=== PATIENT | male | born 1975 | race Caucasian/White ===

== ENCOUNTER 2018-07-13 05:02 | Emergency (ER) | payer OTHER ==
[2018-07-13] MEDS: LACTATED RINGER'S 500 ML IV (06:42)
[2018-07-13 07:20] LABS: ADD UMIC YES; UR ASCORBIC ACID NEGATIVE (NEGATIVE); UR BILIRUBIN (Dip) NEGATIVE (NEGATIVE); UR BLOOD (Dip) 1+ mg/dL (NEGATIVE); UR CLARITY SLIGHTLY CLOUDY (CLEAR); UR COLOR YELLOW (YELLOW); UR GLUCOSE (Dip) NEGATIVE (NEGATIVE); UR KETONES (Dip) 1+ mg/dL (NEGATIVE); UR LEUKOCYTE ESTERASE (Dip) 2+ Leu/ul (NEGATIVE); UR MUCUS FEW /HPF (NONE SEEN); UR NITRITE (Dip) NEGATIVE (NEGATIVE); UR RBC 4 /HPF (0-5); UR SPECIFIC GRAVITY (Dip) 1.018 (1.003-1.030); UR TOTAL PROTEIN (Dip) NEGATIVE (NEGATIVE); UR UROBILINOGEN (Dip) 2+ mg/dL (NEGATIVE); UR WBC 60 /HPF (0-5)
[2018-07-13] MEDS: CEFTRIAXONE 1 GM/50 ML (PMX) 50 ML IVPB (07:52)
== END 2018-07-13 09:00 | disposition home or self-care (01) ==
LOC: FTE 05:02
DX: R30.0 Dysuria (principal); E86.0 Dehydration
CPT/HCPCS: 81001; 96361; 96365; 99284-25

== ENCOUNTER 2018-08-10 13:05 | Emergency (ER) | payer OTHER | END 2018-08-10 13:31 | disposition left against medical advice (07) | LOC: E/R 13:05 | DX: Z00.00 Encounter for general adult medical examination without abnormal findings (principal) | CPT/HCPCS: 99282; Z7502 ==

== ENCOUNTER 2018-08-26 03:05 | Emergency (ER) | payer OTHER ==
[2018-08-26] MEDS: NYSTATIN/TRIAMCINOLONE 15 GM CR TOP (06:13)
== END 2018-08-26 06:00 | disposition left against medical advice (07) ==
LOC: FTE 03:05
DX: B37.2 Candidiasis of skin and nail (principal); F17.210 Nicotine dependence, cigarettes, uncomplicated
CPT/HCPCS: 99282; Z7502